=== PATIENT | male | born 1965 | race Caucasian/White ===

== ENCOUNTER 2016-11-27 09:50 | Emergency (ER) | payer OTHER ==
[~2016-11-27] VITALS: Ht 172.7 cm; Wt 98.8 kg
[2016-11-27] MEDS ORDERED: SODIUM CHLORIDE 0.9% 1,000 ML IV ONE (10:09)
[2016-11-27] MEDS ORDERED: ONDANSETRON 2MG/ML, 2ML IVPush ONE (10:30)
[2016-11-27] MEDS ORDERED: MORPHINE SULFATE 4 MG/ML, 1ML IVPush PRN (10:30)
[2016-11-27] MEDS ORDERED: LORazepam 2 MG/ML, 1ML IVPush ONE (10:30)
[2016-11-27] MEDS ORDERED: KETOROLAC 30 MG/1 ML IVPush ONE (10:30)
[2016-11-27] MEDS ORDERED: MORPHINE SULFATE 4 MG/ML, 1ML ONE (10:48)
[2016-11-27] MEDS ORDERED: KETOROLAC 30 MG/1 ML ONE (10:48)
[2016-11-27] MEDS ORDERED: ONDANSETRON 2MG/ML, 2ML ONE (10:49)
[2016-11-27] MEDS ORDERED: LORazepam 2 MG/ML, 1ML ONE (10:49)
[2016-11-27] MEDS ORDERED: IBUP800T PO (10:56)
[2016-11-27] MEDS ORDERED: PLEASE ENTER ALLERGIES MC SCH ×2 (11:00)
[2016-11-27 11:07] LABS: BLOOD UREA NITROGEN 17 mg/dL (7-18)
[2016-11-27] MEDS ORDERED: LISINOPRIL 10 MG TABLET PO ONE (12:00)
[2016-11-27] MEDS ORDERED: LISINOPRIL 20 MG TABLET ONE (12:23)
[2016-11-27 13:01] VITALS: BP 129/77
== END 2016-11-27 13:35 | disposition home or self-care (01) ==
LOC: ED 13:31
DX: S16.1XXA Strain of muscle, fascia and tendon at neck level, initial encounter (principal); G44.219 Episodic tension-type headache, not intractable; I10 Essential (primary) hypertension; M19.90 Unspecified osteoarthritis, unspecified site; X50.9XXA Other and unspecified overexertion or strenuous movements or postures, initial encounter; Y93.89 Activity, other specified; Y92.89 Other specified places as the place of occurrence of the external cause; Y99.8 Other external cause status
CPT/HCPCS: 36415; 70450; 72125; 80048; 82040; 85025; 93005; 96361; 96374; 96375; 99291; J1885; J2060; J2405; J7030